=== PATIENT | female | born 2000 | race Caucasian/White ===

== ENCOUNTER 2022-07-14 04:25 | Emergency (ER) | payer OTHER ==
[~2022-07-14] VITALS: Ht 152.4 cm; Wt 85.9 kg
[2022-07-14] MEDS ORDERED: ACETAMINOPHEN 325MG TABLET PO ONE (06:45)
[2022-07-14] MEDS ORDERED: IBUPROFEN 400MG TABLET PO ONE (06:45)
[2022-07-14] MEDS ORDERED: METHOCARBAMOL 750MG TABLET PO SCH (06:45)
[2022-07-14] MEDS ORDERED: IBUP-2028 MT (08:36)
[2022-07-14] MEDS ORDERED: TOPUD PO (08:36)
[2022-07-14] MEDS ORDERED: METH-653 MT (08:36)
[2022-07-14 08:46] VITALS: BP 125/75
== END 2022-07-14 08:48 | disposition home or self-care (01) ==
LOC: ER 04:25
DX: M25.562 Pain in left knee (principal); M25.561 Pain in right knee; V43.62XA Car passenger injured in collision with other type car in traffic accident, initial encounter; Y93.89 Activity, other specified; Y92.411 Interstate highway as the place of occurrence of the external cause
CPT/HCPCS: 71045; 73562; 99284